=== PATIENT | male | born 1995 | race Two or more races ===

== ENCOUNTER 2024-05-25 12:30 | Emergency (ER) | payer OTHER ==
[~2024-05-25] VITALS: Ht 182.9 cm; Wt 81.8 kg
[2024-05-25] MEDS: PROCHLORPERAZINE EDISYLATE 5 MG/ML 2ML VIAL IV ONE (12:54)
[2024-05-25] MEDS: PANTOPRAZOLE 40 MG/10 ML VIAL INJ IV ONE (12:54)
[2024-05-25] MEDS: SODIUM CHLORIDE 0.9% 1,000 ML IVB ONE (12:55)
[2024-05-25] MEDS: MORPHINE SULFATE 4 MG/ML SYR/VIAL IV ONE (12:55)
[2024-05-25 12:59] VITALS: BP 129/79; PULSE 73; RESP 18; TEMP 98; O2SAT 98
[2024-05-25 13:34] LABS: Hemoglobin 15.7 g/dL (13.5-17.5); Mean Corpuscular Hemoglobin 30.1 pg (28.0-32.0); Mean Corpuscular Hgb Conc. 33.3 g/dL (32.0-36.0); Mean Corpuscular Volume 90.3 fL (80.0-100.0); Red Blood Cells 5.21 10^6/uL (4.5-5.90); Red Cell Distribution Width 13.9 % (11.8-14.3); White Blood Cell 15.8 10^3/uL (4.4-10.8)
[2024-05-25 13:44] LABS: Alanine Aminotransferase 13 U/L (7-40); Albumin 4.5 g/dL (3.2-4.8); Alkaline Phosphatase 45 U/L (46-116); Anion Gap 8 (5-15); Aspartate Aminotransferase 10 U/L (13-40); Calcium 9.5 mg/dL (8.7-10.4); Carbon Dioxide 27 mmol/L (20-30); Glucose 93 mg/dL (74-106); Lipase 32 U/L (12-53)
[2024-05-25 13:48] LABS: Basophils % (manual) 0 (0.0-2.0); Blast Cells 0; Chloride 107 mmol/L (98-107); Metamyelocytes % 0; Myelocytes % 0; Potassium 5.1 mmol/L (3.5-5.1); Promyelocytes % 0; Sodium 142 mmol/L (136-145)
[2024-05-25 13:55] LABS: Band Neutrophils % (manual) 5; Eosinophils % (manual) 1 (0-7); Lymphocytes % (manual) 2 (10.0-50.0); Monocytes % (manual) 4 (0-12); Reactive Lymphocytes 1
[2024-05-25 13:57] LABS: Platelet Estimate Decreased; RBC Morphology Normal
[2024-05-25 14:01] LABS: BUN/Creatinine Ratio 13.2 (10.0-20.0); Blood Urea Nitrogen 12 mg/dL (9-23)
[2024-05-25 14:03] LABS: Bilirubin, Total 3.8 mg/dL (0.2-1.0)
== END 2024-05-25 13:52 | disposition left against medical advice (07) ==
LOC: EDBD 12:30 → ER 12:30
DX: R11.10 Vomiting, unspecified (principal); R10.9 Unspecified abdominal pain; F17.210 Nicotine dependence, cigarettes, uncomplicated; F12.90 Cannabis use, unspecified, uncomplicated; Z88.1 Allergy status to other antibiotic agents
CPT/HCPCS: 36415; 74176; 80053; 83690; 85007; 85027; 96374; 96375; 99285; J0780; J2270; J2470; J7030